=== PATIENT | male | born 1985 | race Caucasian/White ===

== ENCOUNTER 2022-04-08 18:28 | Emergency (ER) | payer BC, OTHER ==
[2022-04-08] MEDS ORDERED: Sodium Chloride 0.9% 10 ML Syringe FLUSH PRN (19:52)
[2022-04-08] MEDS ORDERED: Famotidine 20 MG/2 ML SDV IVPUSH ONE (19:52)
[2022-04-08] MEDS ORDERED: Ondansetron 4 MG/2 ML SDV IVPUSH ONE (19:52)
[2022-04-08] MEDS ORDERED: Sodium Chloride 0.9% 1,000 ML IV SCH (20:00)
[2022-04-08 20:10] LABS: ESTIMATED GFR 73 mL/min (>60)
== END 2022-04-08 22:17 | disposition home or self-care (01) ==
LOC: JD.ED 18:28
DX: R10.12 Left upper quadrant pain (principal); R19.7 Diarrhea, unspecified; E10.9 Type 1 diabetes mellitus without complications
CPT/HCPCS: 36415; 80053; 85025; 86140; 96361; 96374; 96375; 99284; J2405; J3490; J7030